=== PATIENT | female | born 1975 | race Caucasian/White ===

== ENCOUNTER 2018-08-06 10:28 | Emergency (ER) | payer MEDICAID ==
[~2018-08-06] VITALS: Ht 165.1 cm; Wt 59.1 kg
[2018-08-06 10:41] VITALS: Ht 165.1 cm; Wt 59.1 kg
[2018-08-06] MEDS ORDERED: TESSALON PERLE100 MG PO (11:53)
[2018-08-06] MEDS ORDERED: FLUTICASONE PRO16 GM NASAL (11:53)
[2018-08-06] MEDS ORDERED: ZPAK PO (11:53)
[2018-08-06 12:18] VITALS: BP 126/78
== END 2018-08-06 12:19 | disposition home or self-care (01) ==
LOC: D.ER 10:28
DX: J01.90 Acute sinusitis, unspecified (principal); R09.89 Other specified symptoms and signs involving the circulatory and respiratory systems; R50.9 Fever, unspecified

== ENCOUNTER 2018-11-18 16:42 | Emergency (ER) | payer MEDICAID ==
[~2018-11-18 16:42] MED LIST: FLUTICASONE PRO16 GM NASAL; TESSALON PERLE100 MG PO; ZPAK PO
[2018-11-18 17:05] VITALS: BP 120/67; BMI 23.3
[2018-11-18 18:55] LABS: APPEARANCE CLEAR (CLEAR); BILIRUBIN NEGATIVE (NEGATIVE); COLOR YELLOW (YELLOW); GLUCOSE NEGATIVE (NEGATIVE); KETONE MODERATE mg/dL (NEGATIVE); NITRITE NEGATIVE (NEGATIVE); PROTEIN NEGATIVE (NEGATIVE); UROBILINOGEN NORMAL (NORMAL)
== END 2018-11-18 19:36 | disposition left against medical advice (07) ==
LOC: D.ER 16:42
PROVIDERS: Emergency Medicine
DX: M54.5 Low back pain (principal)